=== PATIENT | female | born 1985 | race African-American/Black ===

== ENCOUNTER 2017-01-18 18:38 | Emergency (ER) | payer OTHER ==
[~2017-01-18] VITALS: Ht 162.6 cm; Wt 94.1 kg
[~2017-01-18 18:38] MED LIST: DSS100 PO; IBUP-1547 PO; PREN1TAB80 PO
[2017-01-18 18:40] VITALS: BP 148/104
== END 2017-01-18 21:30 | disposition left against medical advice (07) ==
LOC: EMS 18:39
DX: R51 Headache (principal); F17.210 Nicotine dependence, cigarettes, uncomplicated; Z53.21 Procedure and treatment not carried out due to patient leaving prior to being seen by health care provider

== ENCOUNTER 2017-01-20 17:37 | Emergency (ER) | payer OTHER ==
[~2017-01-20] VITALS: Ht 162.6 cm; Wt 94.0 kg
[2017-01-20 19:42] LABS: ADD UA MICROSCOPIC NO; APPEARANCE,URINE CLOUDY (CLEAR); GLUCOSE, URINE (UA) NEGATIVE (NEGATIVE); KETONES,URINE NEGATIVE (NEGATIVE); LEUKOCYTE ESTERASE ,URINE NEGATIVE (NEGATIVE); OCCULT BLOOD,URINE NEGATIVE (NEGATIVE); PH,URINE 5.5 (5.0-8.0); PROTEIN,URINE NEGATIVE (NEGATIVE)
[2017-01-20 20:00] VITALS: BP 138/96
[2017-01-20] MEDS ORDERED: IBUPROFEN 800 MG TABLET PO ONE (20:15)
[2017-01-20] MEDS ORDERED: RANITIDINE HCL 150 MG TABLET PO ONE (20:15)
== END 2017-01-20 20:28 | disposition home or self-care (01) ==
LOC: EMS 17:39
DX: K21.9 Gastro-esophageal reflux disease without esophagitis (principal); M54.6 Pain in thoracic spine; F17.210 Nicotine dependence, cigarettes, uncomplicated
CPT/HCPCS: 71020; 81025; 99285

== ENCOUNTER 2017-01-25 23:12 | Emergency (ER) | payer OTHER ==
[~2017-01-25] VITALS: Ht 162.6 cm; Wt 94.0 kg
[2017-01-25] MEDS ORDERED: RANI150T7 PO (23:49)
[2017-01-25] MEDS ORDERED: IBUP-1547 PO (23:49)
[2017-01-26 00:01] VITALS: BP 125/78
[2017-01-26] MEDS: KETOROLAC TROMETHAMINE 60 MG/2 ML VIAL IM ONE (00:23)
== END 2017-01-26 00:30 | disposition home or self-care (01) ==
LOC: EMS 23:12
DX: E04.9 Nontoxic goiter, unspecified (principal); F17.210 Nicotine dependence, cigarettes, uncomplicated
CPT/HCPCS: 96372; 99283; J1885